=== PATIENT | male | born 1965 | race Caucasian/White ===

== ENCOUNTER 2017-01-15 22:07 | Emergency (ER) | payer SELFPAY ==
[~2017-01-15] VITALS: Ht 182.9 cm; Wt 95.3 kg
[2017-01-15 22:54] LABS: BASOPHILS % (AUTO) 1 % (0-10); EOSINOPHILS # (AUTO) 0.5 10^3/uL (0.0-0.3); EOSINOPHILS % (AUTO) 6 % (0-10); LYMPHOCYTES % (AUTO) 23 % (12-44); MEAN CORPUSCULAR HEMOGLOBIN 31 PG (25-34); MEAN CORPUSCULAR HGB CONC 34 G/DL (32-36); MEAN CORPUSCULAR VOLUME 89 FL (80-99); MEAN PLATELET VOLUME 10.9 FL (7.4-10.4); MONOCYTES # (AUTO) 1.1 X 10^3 (0.0-1.0); MONOCYTES % (AUTO) 13 % (0-12); NEUTROPHILS # (AUTO) 4.9 X 10^3 (1.8-7.8); NEUTROPHILS % (AUTO) 58 % (42-75); PLATELET COUNT 211 10^3/uL (130-400); RED BLOOD COUNT 4.76 10^6/uL (4.35-5.85); RED CELL DISTRIBUTION WIDTH 13.4 % (10.0-14.5); WHITE BLOOD COUNT 8.5 10^3/uL (4.3-11.0)
[2017-01-15 22:58] LABS: INR 0.9 (0.8-1.4); PROTHROMBIN TIME PATIENT 11.9 SEC (12.2-14.7)
[2017-01-15 23:09] LABS: ALANINE AMINOTRANSFERASE 21 U/L (0-55); ALBUMIN 4.3 G/DL (3.2-4.5); ANION GAP 13 MMOL/L (5-14); ASPARTATE AMINO TRANSFERASE 18 U/L (5-34); BILIRUBIN,TOTAL 0.4 MG/DL (0.1-1.0); BLOOD UREA NITROGEN 21 MG/DL (7-18); BUN/CREATININE RATIO 15; CALCIUM 9.6 MG/DL (8.5-10.1); CARBON DIOXIDE 21 MMOL/L (21-32); CHLORIDE 106 MMOL/L (98-107); CREATININE SERUM 1.42 MG/DL (0.60-1.30); GFR ESTIMATED 53; GLUCOSE 134 MG/DL (70-105); MAGNESIUM 2.4 MG/DL (1.8-2.4); POTASSIUM 3.9 MMOL/L (3.6-5.0); SODIUM 140 MMOL/L (135-145); TOTAL PROTEIN 7.6 G/DL (6.4-8.2)
[2017-01-15 23:15] LABS: MYOGLOBIN SERUM 33.2 NG/ML (10.0-92.0)
[2017-01-15] MEDS ORDERED: NS IV 1000 ML 1,000 ML IV ONE (23:20)
[2017-01-16] MEDS ORDERED: MECLIZINE 25 MG (ANTIVERT) TAB PO ONE
[2017-01-16] MEDS ORDERED: RX-MECLIZINE HCL (ANTIVERT) 25 MG TAB #4 PPK PO STA (00:38)
--- NOTE | 2017-01-16 00:41 | ED General ---
General Chief Complaint: Dizziness/Syncope Stated Complaint: HIGH BLOOD PRESSURE/UNSTEADY GAIT/LIGHT HEADEDNESS Nursing Triage Note: PT TO ED 9 W/ C/O ELEVATED BP ET DIZZINESS ONSET 1730 Nursing Sepsis Screen: No Definite Risk Source of Information: Patient Exam Limitations: No Limitations History of Present Illness Time Seen by Provider: 22:48 Initial Comments This 51-year-old gentleman presents to the emergency room with complaints of dizziness and disequilibrium that started between 17:30 head a 2:00. Symptoms are specifically triggered by head movements and rising to a standing position. He then has disequilibrium with walking. Patient was sitting at the time of onset. Patient denies any associated symptoms except a brief episode of sweating. Patient presented to his chiropractor who noted he was hypertensive. His chiropractor advised him to present to the emergency room. Allergies and Home Medications Allergies Coded Allergies: No Known Drug Allergies (Unverified , 01/15/17) Constitutional: no symptoms reported EENTM: see HPI Respiratory: no symptoms reported Cardiovascular: see HPI Gastrointestinal: no symptoms reported Genitourinary: no symptoms reported Musculoskeletal: no symptoms reported Skin: no symptoms reported Psychiatric/Neurological: See HPI Hematologic/Lymphatic: No Symptoms Reported Immunological/Allergic: no symptoms reported Past Brmqmib-Oetrtr-Pqxnjf Hx Patient Social History Alcohol Use: Denies Use Recreational Drug Use: No Smoking Status: Never a Smoker Recent Foreign Travel: No Contact w/Someone Who Travel: No Recent Infectious Disease Expo: No Recent Hopitalizations: No Surgeries HX Surgeries: Yes Surgeries: Coronary Stent, Orthopedic, Testicular Respiratory Hx Respiratory Disorders: No Cardiovascular Hx Cardiac Disorders: Yes Cardiac Disorders: Coronary Artery Disease, Heart Attack, High Cholesterol Neurological Hx Neurological Disorders: No Genitourinary Hx Genitourinary Disorders: No Gastrointestinal Hx Gastrointestinal Disorders: No Musculoskeletal Hx Musculoskeletal Disorders: No Endocrine Hx Endocrine Disorders: No HEENT HX ENT Disorders: No Cancer Hx Cancer: No Psychosocial Hx Psychiatric Problems: No Integumentary HX Skin/Integumentary Disorder: No Physical Exam Vital Signs Vital Sign - Last 12Hours 01/15/17 22:31 Temp 97.8 Pulse 57 Resp 20 B/P (MAP) 164/99 Pulse Ox 97 O2 Delivery Room Air Capillary Refill : Less Than 3 Seconds General Appearance: No Apparent Distress, WD/WN HEENT: PERRL/EOMI, TMs Normal, Normal ENT Inspection, Pharynx Normal Neck: Normal Inspection, No Carotid Bruit Respiratory: Lungs Clear, Normal Breath Sounds, No Accessory Muscle Use, No Respiratory Distress Cardiovascular: Regular Rate, Rhythm, No Edema, No Murmur Gastrointestinal: Normal Bowel Sounds, Non Tender, Soft Extremity: Normal Inspection, Non Tender, No Pedal Edema Neurologic/Psychiatric: Alert, Oriented x3, No Motor/Sensory Deficits, Normal Mood/Affect, event organizer II-XII Norm as Tested, Other ([place]-Hallpike negative) Skin: Normal Color, Warm/Dry Progress/Results/Core Measures Results/Orders Lab Results Laboratory Tests Test 01/15/17 22:37 Range/Units White Blood Count 8.5 4.3-11.0 10^3/uL Red Blood Count 4.76 4.35-5.85 10^6/uL Hemoglobin 14.6 13.3-17.7 G/DL Hematocrit 42 40-54 % Mean Corpuscular Volume 89 80-99 FL Mean Corpuscular Hemoglobin 31 25-34 PG Mean Corpuscular Hemoglobin Concent 34 32-36 G/DL Red Cell Distribution Width 13.4 10.0-14.5 % Platelet Count 211 130-400 10^3/uL Mean Platelet Volume 10.9 H 7.4-10.4 FL Neutrophils (%) (Auto) 58 42-75 % Lymphocytes (%) (Auto) 23 12-44 % Monocytes (%) (Auto) 13 H 0-12 % Eosinophils (%) (Auto) 6 0-10 % Basophils (%) (Auto) 1 0-10 % Neutrophils # (Auto) 4.9 1.8-7.8 X 10^3 Lymphocytes # (Auto) 2.0 1.0-4.0 X 10^3 Monocytes # (Auto) 1.1 H 0.0-1.0 X 10^3 Eosinophils # (Auto) 0.5 H 0.0-0.3 10^3/uL Basophils # (Auto) 0.0 0.0-0.1 10^3/uL Prothrombin Time 11.9 L 12.2-14.7 SEC INR Comment 0.9 0.8-1.4 Activated Partial Thromboplast Time 32 24-35 SEC Sodium Level 140 135-145 MMOL/L Potassium Level 3.9 3.6-5.0 MMOL/L Chloride Level 106 98-107 MMOL/L Carbon Dioxide Level 21 21-32 MMOL/L Anion Gap 13 5-14 MMOL/L Blood Urea Nitrogen 21 H 7-18 MG/DL Creatinine 1.42 H 0.60-1.30 MG/DL Estimat Glomerular Filtration Rate 53 BUN/Creatinine Ratio 15 Glucose Level 134 H 70-105 MG/DL Calcium Level 9.6 8.5-10.1 MG/DL Magnesium Level 2.4 1.8-2.4 MG/DL Total Bilirubin 0.4 0.1-1.0 MG/DL Aspartate Amino Transf (AST/SGOT) 18 5-34 U/L Alanine Aminotransferase (ALT/SGPT) 21 0-55 U/L Alkaline Phosphatase 101 40-136 U/L Myoglobin 33.2 10.0-92.0 NG/ML Troponin I < 0.30 <0.30 NG/ML Total Protein 7.6 6.4-8.2 G/DL Albumin 4.3 3.2-4.5 G/DL My Orders Orders - ALLA RITTER MD Cbc With Automated Diff (01/15/17 22:48) Magnesium (01/15/17 22:48) Chest 1 View, Ap/Pa Only (01/15/17 22:48) Ekg Tracing (01/15/17 22:48) Cardiac Profile 1 (01/15/17 22:48) Comprehensive Metabolic Panel (01/15/17 22:48) Myoglobin Serum (01/15/17 22:48) Protime With Inr (01/15/17 22:48) Partial Thromboplastin Time (01/15/17 22:48) O2 (01/15/17 22:48) Monitor-Rhythm Ecg Trace Only (01/15/17 22:48) Saline Lock/Iv-Start (01/15/17 22:48) Ns Iv 1000 Ml (Sodium Chloride 0.9%) (01/15/17 23:20) Meclizine Tablet (Antivert Tablet) (01/16/17 00:00) Rx-Meclizine Hcl (Rx-Antivert) (01/16/17 00:38) Medications Given in ED Current Medications Medications Dose Ordered Sig/Aleja Route Start Time Stop Time Status Last Admin Dose Admin Meclizine HCl 25 mg ONCE ONCE PO 01/16/17 00:00 01/16/17 00:01 DC 01/15/17 23:58 25 MG Sodium Chloride 1,000 ml @ 0 mls/hr Q0M ONCE IV 01/15/17 23:20 01/15/17 23:21 DC 01/15/17 23:29 1,000 MLS/HR Vital Signs/I&O Vital Sign - Last 12Hours 01/15/17 01/16/17 22:31 00:49 Temp 97.8 Pulse 57 59 Resp 20 18 B/P (MAP) 164/99 Pulse Ox 97 99 O2 Delivery Room Air Blood Pressure Mean: 120 Progress Note : Progress Note Patient was observed to have episodes of recurrent dizziness with sharp head movements or upon standing. Dizziness resolves with a period of rest. Episodes of dizziness that occur while ambulating cause disequilibrium. Workup was relatively unremarkable. We discussed the potential for further evaluation included CT scan. Symptoms seem to be more of a vertigo type of dizziness with head movement as a trigger. CT was felt to likely be low yield. Patient elects to forego CT scan at this time. Meclizine was given. Patient reports his symptoms were noticeably improved prior to discharge. ECG Initial ECG Impression Date: Jan 15, 2017 Initial ECG Impression Time: 22:50 Initial ECG Rate: 60 Initial ECG Rhythm: Normal Sinus Initial ECG Intervals: Normal Initial ECG Impression: Normal Comment Normal sinus rhythm with no ST elevation or depression. No abnormal intervals or axis deviation. Diagnostic Imaging Diagonstic Imaging: Xray Plain Films/CT/US/NM/MRI: chest Comments Chest x-ray viewed by me and report not available. No acute abnormalities appreciated. Departure Impression Impression: Primary Impression: Vertigo Additional Impression: Disequilibrium Disposition: 01 HOME, SELF-CARE Condition: Improved Departure-Patient Inst. Decision time for Depature: 00:40 Referrals: RUDDY VÁSQUEZ MD (PCP/Family) Primary Care Physician Patient Instructions: Vertigo (a Type of Dizziness) (DC) Add. Discharge Instructions: follow-up with your primary care provider as soon as possible. In the meantime , you may take meclizine. Walk with extreme caution with somebody to assist you or something to hold onto as long as symptoms persist. Return to care if symptoms worsen. All discharge instructions reviewed with patient and/or family. Voiced understanding. Copy Copies To 1: RUDDY VÁSQUEZ MD, JOSHUA T MD Jan 16, 2017 00:41
[2017-01-16 00:49] VITALS: BP 151/89
--- NOTE | 2017-01-16 07:32 | Diagnostic Imaging Report ---
INDICATION: Dizziness, elevated blood pressure. FINDINGS: The heart and lungs appeared normal. There is no effusion or pneumothorax. IMPRESSION: No acute appearing abnormality. Dictated by: Dictated on workstation # [id number]
== END 2017-01-16 00:49 | disposition home or self-care (01) ==
LOC: ER 22:14
DX: R42 Dizziness and giddiness (principal); E87.8 Other disorders of electrolyte and fluid balance, not elsewhere classified; I25.10 Atherosclerotic heart disease of native coronary artery without angina pectoris; E78.5 Hyperlipidemia, unspecified; Z86.74 Personal history of sudden cardiac arrest
CPT/HCPCS: 36415; 71010; 80053; 83735; 83874; 84484; 85025; 85610; 85730; 93005

== ENCOUNTER 2021-02-04 20:56 | Emergency (ER) | payer OTHER ==
[~2021-02-04] VITALS: Ht 182.8 cm; Wt 93.8 kg
--- NOTE | 2021-02-04 21:26 | ED General ---
General Chief Complaint: General Problems/Pain Stated Complaint: LEFT ARM PAIN/SPASMS Source of Information: Patient History of Present Illness Date Seen by Provider: Feb 04, 2021 Time Seen by Provider: 20:59 Initial Comments 55 yo male presenting with complaints of left upper arm and trapezius muscle pain and spasm x 2 days and this evening his right hip started to hurt him. 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 This evening after he was stopped and was resting he had increased pain and spasm to his trapezius and upper left arm. He also injured his right hip and groin was hurting. He denies any chest pain, nausea, vomiting, shortness of breath, sweating. He has a history of heart problems and had a heart attack in May. He has an appointment to see his doctor in the morning about his arm neck pain but tonight when his hip started to hurt his family convinced him to come to the ER to be checked for blood clots. He has no swelling or redness to his extremities. He is taking blood thinners and medication for his recent heart attack in May. Timing/Duration: 1-2 Days Associated Systoms: No Chest Pain, No Cough, No Diaphoresis, No Fever/Chills, No Headaches, No Loss of Appetite, No Malaise, No Nausea/Vomiting, No Rash, No Seizure, No Shortness of Air, No Syncope, No Weakness Allergies and Home Medications Allergies Coded Allergies: No Known Drug Allergies (Unverified , 01/15/17) Patient Home Medication List Home Medication List Reviewed: Yes Review of Systems Review of Systems Constitutional: No chills, No diaphoresis, No fever, No malaise EENTM: no symptoms reported Respiratory: no symptoms reported Cardiovascular: No chest pain Gastrointestinal: No nausea, No vomiting Genitourinary: no symptoms reported Musculoskeletal: joint pain (right anterior groin/hip pain worse with rest), other (pain and spasm in left trapezius muscle and into left upper arm, worse at rest and with arm hanging down.) Skin: no symptoms reported Psychiatric/Neurological: Denies Numbness, Denies Paresthesia Hematologic/Lymphatic: Denies Blood Clots Past Gngjdpo-Umffkb-Jzrbxs Hx Past Med/Social Hx: Reviewed Nursing Past Med/Soc Hx Patient Social History Alcohol Use: Denies Use Smoking Status: Never a Smoker 2nd Hand Smoke Exposure: No Recent Hopitalizations: No Immunizations Up To Date Tetanus Booster (TDap): Unknown Seasonal Allergies Seasonal Allergies: No Past Medical History Surgeries: Yes (KNEE SCOPE, ROTATOR CUFF REPAIR) Coronary Stent, Orthopedic, Testicular Respiratory: No Cardiac: Yes (STENT X5) Coronary Artery Disease, Heart Attack, High Cholesterol Neurological: No Genitourinary: No Gastrointestinal: No Musculoskeletal: No Endocrine: No HEENT: No Cancer: No Psychosocial: No Integumentary: No Blood Disorders: No Physical Exam Vital Signs Vital Signs - First Documented 02/04/21 21:00 Temp 36.9 Pulse 60 Resp 18 B/P (MAP) 160/90 (113) Pulse Ox 97 O2 Delivery Room Air Capillary Refill : Height, Weight, BMI Height: 6'" Weight: 210lbs. oz. 95.730196cr; BMI Method:Stated General Appearance: No Apparent Distress, WD/WN HEENT: PERRL/EOMI, Pharynx Normal Neck: Supple, Tender Lateral (left trapezius muscle with palpation and with left lateral gaze) Respiratory: Chest Non Tender, Lungs Clear, Normal Breath Sounds, No Accessory Muscle Use, No Respiratory Distress Cardiovascular: Regular Rate, Rhythm, No Edema, No Murmur, Normal Peripheral Pulses Gastrointestinal: Normal Bowel Sounds, No Pulsatile Mass, Non Tender, Soft Rectal: Deferred Back: Normal Inspection Extremity: Normal Capillary Refill, Normal Inspection, Normal Range of Motion, No Calf Tenderness, No Pedal Edema, Other (tender to palpation over left trapezius muscle and with left lateral gaze. no pain with shoulder movement or pain with walking and leg/hip movement. ) Neurologic/Psychiatric: Alert, Oriented x3 Skin: Normal Color, Warm/Dry Progress/Results/Core Measures Suspected Sepsis SIRS Temperature: Pulse: Respiratory Rate: Laboratory Tests 02/04/21 21:11: White Blood Count 8.9 Blood Pressure / Mean: Laboratory Tests 02/04/21 21:11: Creatinine 1.50H, INR Comment 1.0, Platelet Count 195, Total Bilirubin 0.3 Results/Orders Lab Results Laboratory Tests Test 02/04/21 21:11 Range/Units White Blood Count 8.9 4.3-11.0 10^3/uL Red Blood Count 4.62 4.35-5.85 10^6/uL Hemoglobin 14.5 13.3-17.7 G/DL Hematocrit 43 40-54 % Mean Corpuscular Volume 94 80-99 FL Mean Corpuscular Hemoglobin 31 25-34 PG Mean Corpuscular Hemoglobin Concent 34 32-36 G/DL Red Cell Distribution Width 13.8 10.0-14.5 % Platelet Count 195 130-400 10^3/uL Mean Platelet Volume 10.5 H 7.4-10.4 FL Immature Granulocyte % (Auto) 1 % Neutrophils (%) (Auto) 65 42-75 % Lymphocytes (%) (Auto) 20 12-44 % Monocytes (%) (Auto) 11 0-12 % Eosinophils (%) (Auto) 3 0-10 % Basophils (%) (Auto) 1 0-10 % Neutrophils # (Auto) 5.8 1.8-7.8 X 10^3 Lymphocytes # (Auto) 1.8 1.0-4.0 X 10^3 Monocytes # (Auto) 0.9 0.0-1.0 X 10^3 Eosinophils # (Auto) 0.3 0.0-0.3 10^3/uL Basophils # (Auto) 0.1 0.0-0.1 10^3/uL Immature Granulocyte # (Auto) 0.1 0.0-0.1 10^3/uL Prothrombin Time 13.2 12.2-14.7 SEC INR Comment 1.0 0.8-1.4 Activated Partial Thromboplast Time 30 24-35 SEC D-Dimer 0.21 0.00-0.49 UG/ML Sodium Level 139 135-145 MMOL/L Potassium Level 4.1 3.6-5.0 MMOL/L Chloride Level 105 98-107 MMOL/L Carbon Dioxide Level 25 21-32 MMOL/L Anion Gap 9 5-14 MMOL/L Blood Urea Nitrogen 22 H 7-18 MG/DL Creatinine 1.50 H 0.60-1.30 MG/DL Estimat Glomerular Filtration Rate 49 BUN/Creatinine Ratio 15 Glucose Level 117 H 70-105 MG/DL Calcium Level 9.4 8.5-10.1 MG/DL Corrected Calcium 9.0 8.5-10.1 MG/DL Magnesium Level 1.9 1.6-2.4 MG/DL Total Bilirubin 0.3 0.1-1.0 MG/DL Aspartate Amino Transf (AST/SGOT) 20 5-34 U/L Alanine Aminotransferase (ALT/SGPT) 30 0-55 U/L Alkaline Phosphatase 96 40-136 U/L Troponin I < 0.30 <0.30 NG/ML Pro-B-Type Natriuretic Peptide 370.8 H <75.0 PG/ML Total Protein 6.9 6.4-8.2 GM/DL Albumin 4.5 3.2-4.5 GM/DL Lipase 34 8-78 U/L My Orders Orders - RAMY FARIAS MD Ekg Tracing (02/04/21 21:01) O2 (02/04/21 21:01) Monitor-Rhythm Ecg Trace Only (02/04/21 21:01) Ed Iv/Invasive Line Start (02/04/21 21:01) Chest 1 View Ap/Pa Only (02/04/21 21:12) Pelvis With Right Hip 2-3 View (02/04/21 21:12) Fibrin Degradation Products (02/04/21 21:15) Cbc With Automated Diff (02/04/21 21:54) Magnesium (02/04/21 21:54) Comprehensive Metabolic Panel (02/04/21 21:54) Protime With Inr (02/04/21 21:54) Partial Thromboplastin Time (02/04/21 21:54) Lipase (02/04/21 21:54) Troponin I Fs (02/04/21 21:54) Probnp Fs (02/04/21 21:54) Vital Signs/I&O 02/04/21 02/04/21 21:00 22:44 Temp 36.9 36.9 Pulse 60 60 Resp 18 18 B/P (MAP) 160/90 (113) 160/90 (113) Pulse Ox 97 97 O2 Delivery Room Air Capillary Refill : Progress Note #1: Progress Note check ECG and labs. obtain CXR and pelvis xray with right hip. Progress Note #2: Progress Note No acute ST elevation or ischemia on ECG. On my review of single view chest xray and pelvis with right hip no acute fracture or acute process seen to account for his symptoms. Awaiting labs. Progress Note #3: Time: 21:45 Progress Note lab reported that they could not see any orders other than the D dimer so nothing else was run. D dimer is negative but lab was advised there were multiple other labs ordered when pt arrived at 2101 that are in the computer and they said they would need to be re-ordered because nothing crossed over to them. Progress Note #4: Time: 22:29 Progress Note Labs are back and do not show any acute significant abnormality. His cardiac enzymes after 2 days of symptoms are negative. Advised to keep appt in am with Dr. Vásquez and offered to try muscle relaxer or topical NSAID such as Voltaren. Patient wanted to wait and see what Dr. Vásquez recommends. Will hold off on any meds for now and keep appt tomorrow. ECG Initial ECG Impression Date: Feb 04, 2021 Initial ECG Impression Time: 21:05 Initial ECG Rate: 60 Initial ECG Rhythm: Normal Sinus Initial ECG Comparisson: No Previous ECG Available Comment Normal sinus rhythm with a heart rate of 60 bpm. FL interval [address] elevation. He does have baseline wander. Prolonged QT interval with QT intervals of 515 ms and QTc interval of 515 ms. No prior tracing available for comparison. Diagnostic Imaging Diagonstic Imaging: Xray Plain Films/CT/US/NM/MRI: chest Comments NAME: DA NAPIER MED REC#: [id number] PT STATUS: REG ER : 1965 PHYSICIAN: RAMY FARIAS MD ADMIT DATE: 02/04/21/ER FS Draft Date of Exam:02/04/21 CHEST 1 VIEW AP/PA ONLY INDICATION: Left arm pain for 2 days. Right leg and hip pain. Trapezius/upper arm pain. EXAMINATION: Chest from 02/04/2021 FINDINGS: There is no evidence for an acute fracture or dislocation. The joint spaces are well maintained. There is no significant soft tissue swelling. IMPRESSION: No acute process. Dictated on workstation # [id number] Dict: 02/04/212209 Trans: 02/04/212212 [facility] [id number] Interpreted by: JOYCELYN PAUL MD Electronically signed by: Reviewed: Reviewed by Me Diagonstic Imaging: Xray Plain Films/CT/US/NM/MRI: pelvis, hip Comments NAME: DA NAPIER MED REC#: [id number] PT STATUS: REG ER : 1965 PHYSICIAN: RAMY FARIAS MD ADMIT DATE: 02/04/21/ER FS Draft Date of Exam:02/04/21 PELVIS WITH RIGHT HIP 2-3 VIEW EXAMINATION: Right hip unilateral 2 or 3 views (w/pelvis when done), . HISTORY: Left arm pain for 2 days, hip pain. FINDINGS: There is a sclerotic lesion in the right acetabulum most likely a bone island. Clinical exclusion of any possibility of underlying metastatic disease recommended. No fractures or dislocations appreciated. IMPRESSION: 1. Sclerotic lesion in the right acetabulum, otherwise negative examination. Dictated on workstation # [id number] Dict: 02/04/212210 Trans: 02/04/212216 [facility] [id number] Interpreted by: JOYCELYN PAUL MD Electronically signed by: Departure Impression Primary Impression: Musculoskeletal pain of left upper extremity Additional Impression: Right hip pain Disposition: 01 HOME, SELF-CARE Condition: Stable Departure-Patient Inst. Decision time for Depature: 22:43 Referrals: RUDDY VÁSQUEZ MD (PCP/Family) Primary Care Physician Patient Instructions: Hip Pain ED, Muscle Strain ED Add. Discharge Instructions: Keep your appointment with your provider tomorrow. May try alternating ice and heat to the area to help with pain and inflammation. All discharge instructions reviewed with patient and/or family. Voiced understanding. RAMY FARIAS MD Feb 04, 2021 21:26
[2021-02-04 22:10] LABS: WHITE BLOOD COUNT 8.9 10^3/uL (4.3-11.0)
[2021-02-04 22:11] LABS: BASOPHILS % (AUTO) 1 % (0-10); EOSINOPHILS % (AUTO) 3 % (0-10); HEMATOCRIT 43 % (40-54); HEMOGLOBIN 14.5 G/DL (13.3-17.7); LYMPHOCYTES % (AUTO) 20 % (12-44); MEAN CORPUSCULAR HEMOGLOBIN 31 PG (25-34); MEAN CORPUSCULAR HGB CONC 34 G/DL (32-36); MEAN CORPUSCULAR VOLUME 94 FL (80-99); MEAN PLATELET VOLUME 10.5 FL (7.4-10.4); MONOCYTES % (AUTO) 11 % (0-12); NEUTROPHILS % (AUTO) 65 % (42-75); PLATELET COUNT 195 10^3/uL (130-400)
[2021-02-04 22:12] LABS: BASOPHILS # (AUTO) 0.1 10^3/uL (0.0-0.1); EOSINOPHILS # (AUTO) 0.3 10^3/uL (0.0-0.3); LYMPHOCYTES # (AUTO) 1.8 X 10^3 (1.0-4.0); MONOCYTES # (AUTO) 0.9 X 10^3 (0.0-1.0); NEUTROPHILS # (AUTO) 5.8 X 10^3 (1.8-7.8)
--- NOTE | 2021-02-04 22:13 | Diagnostic Imaging Report ---
INDICATION: Left arm pain for 2 days. Right leg and hip pain. Trapezius/upper arm pain. EXAMINATION: Chest from 02/04/2021 FINDINGS: There is no evidence for an acute fracture or dislocation. The joint spaces are well maintained. There is no significant soft tissue swelling. IMPRESSION: No acute process. Dictated by: Dictated on workstation # [id number]
[2021-02-04 22:16] LABS: PROTHROMBIN TIME PATIENT 13.2 SEC (12.2-14.7)
--- NOTE | 2021-02-04 22:17 | Diagnostic Imaging Report ---
EXAMINATION: Right hip unilateral 2 or 3 views (w/pelvis when done), . HISTORY: Left arm pain for 2 days, hip pain. FINDINGS: There is a sclerotic lesion in the right acetabulum most likely a bone island. Clinical exclusion of any possibility of underlying metastatic disease recommended. No fractures or dislocations appreciated. IMPRESSION: 1. Sclerotic lesion in the right acetabulum, otherwise negative examination. Dictated by: Dictated on workstation # [id number]
[2021-02-04 22:22] LABS: BILIRUBIN,TOTAL 0.3 MG/DL (0.1-1.0); CALCIUM 9.4 MG/DL (8.5-10.1); CREATININE SERUM 1.5 MG/DL (0.60-1.30); MAGNESIUM 1.9 MG/DL (1.6-2.4); POTASSIUM 4.1 MMOL/L (3.6-5.0)
[2021-02-04 22:23] LABS: ALBUMIN 4.5 GM/DL (3.2-4.5); TOTAL PROTEIN 6.9 GM/DL (6.4-8.2)
[2021-02-04 22:44] VITALS: BP 160/90
== END 2021-02-04 22:44 | disposition home or self-care (01) ==
LOC: EDUNIT# 20:56 → ER FS 20:58
DX: M79.622 Pain in left upper arm (principal); M25.551 Pain in right hip; I25.2 Old myocardial infarction
CPT/HCPCS: 36415; 71045; 73502; 80053; 83690; 83735; 83880; 84484; 85025; 85379; 85610; 85730; 93005; 93041

== ENCOUNTER → 2021-10-11 | Outpatient (CLI) | payer OTHER ==
--- NOTE | 2021-10-11 13:38 | Diagnostic Imaging Report ---
INDICATION: SHOULDER PAIN LEFT COMPARISON: None. FINDINGS: Multiple radiographic views of the left shoulder were obtained. There is no fracture, dislocation, or other acute bony abnormality identified. The soft tissues appear unremarkable. No radiopaque foreign body is identified. The visualized portions of the left lung are clear. IMPRESSION: No acute fractures or dislocations of the left shoulder. Dictated by: Dictated on workstation # [id number]
== END ==
LOC: RAD FS 12:54
PROVIDERS: ATTEND Nurse Practitioner
DX: M25.512 Pain in left shoulder (principal); M25.522 Pain in left elbow
CPT/HCPCS: 73030

== ENCOUNTER → 2022-01-10 | Outpatient (CLI) | payer OTHER ==
--- NOTE | 2022-01-10 14:38 | Diagnostic Imaging Report ---
PROCEDURE: US right lower extremity venous. TECHNIQUE: Multiple real-time grayscale images were obtained over the right lower extremity in various projections. Additional spectral analysis and color Doppler duplex images were also obtained. INDICATION: Right leg pain EXAMINATION: Grayscale and color Doppler evaluation of the deep veins of the right lower extremity were performed with waveform analysis. FINDINGS: Continuous venous flow is present. No intraluminal filling defect is identified. There is normal compressibility and response to augmentation. No abnormal perivascular fluid collection is identified. IMPRESSION: No ultrasound evidence of right lower extremity deep venous thrombosis. Dictated by: Dictated on workstation # [id number]
== END ==
LOC: RAD 14:00
PROVIDERS: ATTEND Nurse Practitioner Family
DX: M79.604 Pain in right leg (principal)